=== PATIENT | male | born 1955 | race Caucasian/White ===

== ENCOUNTER 2023-12-21 06:07 | Inpatient (IN) | payer MEDICARE, OTHER ==
[~2023-12-21] VITALS: Ht 170.2 cm; Wt 82.6 kg
[2023-12-21] MEDS ORDERED: VANCOMYCIN 1 GM VIAL ONE (06:21)
[2023-12-21] MEDS ORDERED: dexaMETHasone SOD PHOSPHATE 2 ML ONE (06:21)
[2023-12-21] MEDS ORDERED: ANESTHESIA TRAY IN PYXIS 1 EA TRAY MC ONE (06:21)
[2023-12-21] MEDS ORDERED: LIDOCAINE 2%-EPI 1:100,000 30 ML VIAL ONE (06:21)
[2023-12-21 10:00] VITALS: BP 130/79; TEMP 97.9; O2SAT 97
[2023-12-21 10:15] VITALS: BP 134/81; TEMP 97.5; O2SAT 97
[2023-12-21 10:30] VITALS: BP 142/86; TEMP 97.6; O2SAT 97
[2023-12-21] MEDS ORDERED: ACETAMINOPHEN 325 MG TABLET PO PRN ×2 (10:30→15:30)
[2023-12-21] MEDS ORDERED: HYDROMORPHONE 1 MG/1 ML DISP.SYRIN IV PRN (10:30)
[2023-12-21] MEDS ORDERED: ONDANSETRON HCL/PF 4 MG/2 ML VIAL IV PRN (10:30)
[2023-12-21] MEDS: IV NS 0.9% 1,000 ML IV PRN (10:31)
[2023-12-21 10:45] VITALS: BP 140/90; TEMP 97.4; O2SAT 97
[2023-12-21 11:00] VITALS: BP 136/86; TEMP 97.8; O2SAT 97
[2023-12-21] MEDS ORDERED: TENO25TA PO (13:26)
[2023-12-21] MEDS ORDERED: MAGNESIUM HYDROXIDE 30 ML UDC PO PRN (15:30)
[2023-12-21] MEDS ORDERED: ONDANSETRON HCL/PF 4 MG/2 ML VIAL IVP PRN (15:30)
[2023-12-21] MEDS ORDERED: MAG HYDROX/AL HYDROX/SIMETH 30 ML UDC PO PRN (15:30)
[2023-12-21] MEDS ORDERED: ZOLPIDEM TARTRATE 5 MG TABLET PO PRN (15:30)
[2023-12-21] MEDS ORDERED: Z GUARD REMEDY 4 OZ OINT TP PRN (15:30)
[2023-12-21] MEDS: VANCOMYCIN 1 GM in IV D5W 250ml IV SCH (18:13)
[2023-12-21 20:21] VITALS: BP 120/81; TEMP 98.8; O2SAT 92
[2023-12-22 06:37] LABS: BASOPHILS % (AUTO) 0.1 % (0.0-2.0); HEMATOCRIT 41 % (39-51); HEMOGLOBIN 13.4 g/dL (13.5-17.5); LYMPHOCYTES # (AUTO) 4.7 K/uL (0.8-4.8); LYMPHOCYTES % (AUTO) 35.9 % (20.0-44.0); MEAN CORPUSCULAR HEMOGLOBIN 29 PG (26.0-33.0); MEAN CORPUSCULAR HGB CONC 33 g/dl (31.0-36.0); MEAN CORPUSCULAR VOLUME 87 fL (80-96); MONOCYTES # (AUTO) 0.9 K/uL (0.1-1.30); MONOCYTES % (AUTO) 7.1 % (2.0-12.0); NEUTROPHILS # (AUTO) 7.4 K/uL (1.8-8.9); NEUTROPHILS % (AUTO) 56.9 % (43.0-81.0); PLATELET COUNT (AUTO) 124 K/uL (150-450); RED BLOOD CELL COUNT(AUTO) 4.68 MIL/uL (4.5-6.0); RED CELL DISTRIBUTION WIDTH 13.5 % (11.5-15.0); WHITE BLOOD COUNT (AUTO) 13.1 K/uL (4.3-11.0)
[2023-12-22 07:01] LABS: CALCIUM, SERUM 8.5 mg/dL (8.5-10.1); CREATININE 1.1 mg/dL (0.6-1.3); PHOSPHORUS 3.1 mg/dL (2.5-4.9); POTASSIUM 3.8 mmol/L (3.5-5.1)
[2023-12-22 08:00] VITALS: BP 137/80; TEMP 98.1; O2SAT 94
[2023-12-22] MEDS ORDERED: Medication Not On Formulary EA (Tenofovir Alafenamide Fumarate (Vemlidy) 25 MG) PO SCH (09:00)
== END 2023-12-22 14:40 | disposition home or self-care (01) | DRG 141 ==
LOC: DS 06:07 → MED 10:23
PROVIDERS: ADMIT Student in an Organized Health Care Education/Training Program; ATTEND Student in an Organized Health Care Education/Training Program
PROC: 0NST04Z Reposition Right Mandible with Internal Fixation Device, Open Approach (ICD-10-PCS; principal; 2023-12-21)
PROC: 0N5R0ZZ Destruction of Maxilla, Open Approach (ICD-10-PCS; principal; 2023-12-21)
PROC: 0NUR07Z Supplement Maxilla with Autologous Tissue Substitute, Open Approach (ICD-10-PCS; principal; 2023-12-21)
PROC: 0N5V0ZZ Destruction of Left Mandible, Open Approach (ICD-10-PCS; principal; 2023-12-21)
PROC: 0N5T0ZZ Destruction of Right Mandible, Open Approach (ICD-10-PCS; principal; 2023-12-21)
PROC: 0NUT07Z Supplement Right Mandible with Autologous Tissue Substitute, Open Approach (ICD-10-PCS; principal; 2023-12-21)
PROC: 0NUV07Z Supplement Left Mandible with Autologous Tissue Substitute, Open Approach (ICD-10-PCS; principal; 2023-12-21)
PROC: 0NSV0ZZ Reposition Left Mandible, Open Approach (ICD-10-PCS; principal; 2023-12-21)
PROC: 0NSR04Z Reposition Maxilla with Internal Fixation Device, Open Approach (ICD-10-PCS; principal; 2023-12-21)
DX: M27.2 Inflammatory conditions of jaws (principal); S02.40CA Maxillary fracture, right side, initial encounter for closed fracture; S02.609A Fracture of mandible, unspecified, initial encounter for closed fracture; S02.40DA Maxillary fracture, left side, initial encounter for closed fracture; M89.8X8 Other specified disorders of bone, other site; D16.5 Benign neoplasm of lower jaw bone; D72.829 Elevated white blood cell count, unspecified; J32.0 Chronic maxillary sinusitis; M27.49 Other cysts of jaw; R73.9 Hyperglycemia, unspecified; X58.XXXA Exposure to other specified factors, initial encounter; Y93.9 Activity, unspecified; Y92.009 Unspecified place in unspecified non-institutional (private) residence as the place of occurrence of the external cause
CPT/HCPCS: 36415; 80048-TC; 83735-TC; 84100-TC; 85025-TC; 87081-TC; 88305-TC; 88311-TC; A4223; A4338; C1713; G0378; J0330; J1100; J1170; J2704; J2765; J3370; J3490; J7060

== ENCOUNTER 2024-05-30 07:40 | Inpatient (IN) | payer MEDICARE, OTHER ==
[~2024-05-30] VITALS: Ht 170.2 cm; Wt 76.2 kg
[~2024-05-30 07:40] MED LIST: TENO25TA PO
[2024-05-30] MEDS ORDERED: dexaMETHasone SOD PHOSPHATE 2 ML ONE (10:35)
[2024-05-30] MEDS ORDERED: LIDOCAINE 1%-EPI 1:100,000 20 ML VIAL ONE (10:35)
[2024-05-30] MEDS ORDERED: OXYMETAZOLINE HCL NASAL SPRAY 30 ML BOTTLE NS ONE (10:36)
[2024-05-30] MEDS ORDERED: VANCOMYCIN 1 GM VIAL ONE (10:36)
[2024-05-30 14:00] VITALS: BP 155/89; O2SAT 94
[2024-05-30 16:30] VITALS: BP 145/100; TEMP 97.5; O2SAT 95
[2024-05-30] MEDS ORDERED: IV NS 0.9% 1,000 ML IV PRN (16:30)
[2024-05-30] MEDS ORDERED: ONDANSETRON HCL/PF 4 MG/2 ML VIAL IV PRN (16:30)
[2024-05-30] MEDS ORDERED: ACETAMINOPHEN 325 MG TABLET PO PRN (16:30)
[2024-05-30] MEDS ORDERED: HYDROMORPHONE 1 MG/1 ML DISP.SYRIN IV PRN (16:30)
[2024-05-30 20:52] VITALS: BP 119/79; TEMP 97.3; O2SAT 96
[2024-05-30] MEDS: VANCOMYCIN 1 GM in IV D5W 250ml IV SCH (22:50)
[2024-05-31 08:00] VITALS: BP 130/85; TEMP 97.9; O2SAT 94
[2024-05-31 08:19] VITALS: BP 130/85; TEMP 97.9; O2SAT 94
[2024-05-31] MEDS ORDERED: Medication Not On Formulary EA (Tenofovir Alafenamide Fumarate (Vemlidy) 25 MG) PO SCH (09:00)
== END 2024-05-31 10:52 | disposition home or self-care (01) | DRG 496 ==
LOC: DS 07:40 → MED 14:30
PROVIDERS: ADMIT Internal Medicine; ATTEND Internal Medicine
PROC: 0N5R0ZZ Destruction of Maxilla, Open Approach (ICD-10-PCS; 2024-05-30)
PROC: 0N5V0ZZ Destruction of Left Mandible, Open Approach (ICD-10-PCS; 2024-05-30)
PROC: 0N5T0ZZ Destruction of Right Mandible, Open Approach (ICD-10-PCS; 2024-05-30)
PROC: 0WB30ZZ Excision of Oral Cavity and Throat, Open Approach (ICD-10-PCS; 2024-05-30)
PROC: 0NPW04Z Removal of Internal Fixation Device from Facial Bone, Open Approach (ICD-10-PCS; principal; 2024-05-30 09:55)
DX: T84.69XA Infection and inflammatory reaction due to internal fixation device of other site, initial encounter (principal); C22.9 Malignant neoplasm of liver, not specified as primary or secondary; Y83.8 Other surgical procedures as the cause of abnormal reaction of the patient, or of later complication, without mention of misadventure at the time of the procedure; Y92.009 Unspecified place in unspecified non-institutional (private) residence as the place of occurrence of the external cause; K13.79 Other lesions of oral mucosa; M89.38 Hypertrophy of bone, other site; I10 Essential (primary) hypertension; J32.0 Chronic maxillary sinusitis; Z79.899 Other long term (current) drug therapy
CPT/HCPCS: 88300-TC; 88305-TC; 88311-TC; A4223; G0378; J0360; J0690; J1100; J2704; J3370; J3490; J7060